=== PATIENT | male | born 1965 | race Caucasian/White ===

== ENCOUNTER → 2023-10-04 08:07 | Outpatient (REF) | payer OTHER, SELFPAY | LOC: PET 08:07 | DX: C82.50 Diffuse follicle center lymphoma, unspecified site (principal) | CPT/HCPCS: 78815; A9552 ==

== ENCOUNTER 2024-01-18 10:19 | Emergency (ER) | payer OTHER, SELFPAY ==
[2024-01-18 11:01] VITALS: BP 137/84
[2024-01-18 11:10] LABS: Glucose - Point of Care 92 mg/dl (70-99)
[2024-01-18 11:27] LABS: % Basophils 0.6 % (0-2); % Eosinophils 0.7 % (0-6); % Immature Granulocytes 0.3 % (0-0.5); % Lymphocytes 24.3 % (20.5-51.1); % Neutrophils 65.1 % (42.2-75.2); Absolute Basophils 0.1 10^3/uL (0-0.2); Absolute Eosinophils 0.1 10^3/uL (0-0.7); Absolute Lymphocytes 2.4 10^3/uL (1.2-3.4); Absolute Monocytes 0.9 10^3/uL (0.1-0.6); Absolute Neutrophils 6.4 10^3/uL (1.4-6.5); Hematocrit 48.4 % (39.0-52.0); Hemoglobin 16.4 g/dL (13.0-18.0); Mean Corp Hgb Conc. 33.9 g/dL (33.0-37.0); Mean Corpuscular Hgb 28.9 pg (27.0-31.0); Mean Corpuscular Volume 85.2 fL (80.0-94.0); Mean Platelet Volume 9.9 fL (7.4-10.4); Nucleated Red Blood Cells % 0 % (-); Platelet Count 251 10^3/uL (130-400); Red Blood Cell Count 5.68 10^6/uL (4.70-6.10); Red Cell Dist. Width 13.1 % (11.5-14.5); White Blood Cell Count 9.8 10^3/uL (4.8-10.8)
[2024-01-18 11:36] LABS: ALT (SGPT) 18 U/L (0-50); AST (SGOT) 25 U/L (17-59); Albumin 5.1 g/dl (3.5-5.0); Alkaline Phosphatase 47 U/L (38-126); Blood Urea Nitrogen 23 mg/dl (9-20); Calcium 9.8 mg/dl (8.4-10.2); Carbon Dioxide 29 mmol/L (22-30); Chloride 103 mmol/L (98-107); Glucose 96 mg/dl (70-99); Potassium 5.4 mmol/L (3.5-5.1); Sodium 143 mmol/L (135-145); Total Bilirubin 0.7 mg/dl (0.2-1.3); Total Protein 7.7 g/dl (6.3-8.2); eGFR > 60.00
--- NOTE | 2024-01-18 12:00 | ED.GENMED ---
ED Provider Triage
-
Patient seen by provider in Triage?: Seen in Triage
Attestation: A medical screening examination has been initiated by a qualified medical provider. Based on the assessment performed at this time, it has been determined that an emergent medical condition may exist and the patient has been informed
that further medical evaluation and possible additional diagnostic testing may be needed.
HPI: 59 yr old male hx of b cell lymphoma ( in remission ) sent from [facility] for seizure. Pt was having a laser procedure done and had a witnessed seizure by DR Cano lasting 3 minutes. pt reports he remembers feeling a 'weird
sensation ' starting in his legs that 'was moving up my body and then ' I fell asleep.' pt has had these episodes in the past however not ever seen by neuro. no dx of seizues. no recent trauma/fevers, no headache and no blood thinners.
GENERAL: Alert , in no apparent distress
EYE: No visual abnormalities.
NECK: Trachea midline
ENT: No visible abnormalities.
LUNGS: No acute respiratory distress
NEUROLOGICAL: Alert and oriented
SKIN: Skin intact. No visible changes.
MUSCULOSKELETAL: Moving extremities normally
PSYCH: Normal and appropriate interaction.
This is a medical evaluation conducted in person to initiate diagnostic evaluation and provide initial therapeutics. Please see further documentation by the treating clinician.
History of Present Illness
General
Chief Complaint: Seizure
Past History
Past History
ED Past Medical History: Cancer (Lymphoma)
ED Past Surgical History: Orthopedic
Social History
Tobacco: Non-smoker
Alcohol: None
Drug: None
Living: with family
Course
Orders/Labs/Results
Orders:
Orders
01/18/24 11:09
Complete Blood Count/With Diff Urgent
Comprehensive Metabolic Panel Urgent
Abnormal Lab Results
01/18/24
11:09
Absolute Monos (auto) 0.9 H 10^3/uL
(0.1-0.6)
Potassium 5.4 H mmol/L
(3.5-5.1)
BUN 23 H mg/dl
(9-20)
Albumin 5.1 H g/dl
(3.5-5.0)
01/18/24 11:09
01/18/24 11:09
Vital Signs
Initial and Last Documented VS:
Initial Vital Signs
Temp Pulse Resp BP Pulse Ox
98.7 F 57 16 137/84 98
01/18/24 11:01 01/18/24 11:01 01/18/24 11:01 01/18/24 11:01 01/18/24 11:01
Last Documented Vital Signs
Temp Pulse Resp BP Pulse Ox
98.7 F 57 18 137/84 98
01/18/24 11:01 01/18/24 11:01 01/18/24 12:07 01/18/24 11:01 01/18/24 11:01
ED Attending Note
-
Portions of this chart may have been created with voice recognition software.� Occasional wrong word or��sound alike� substitutions may have occurred due to the inherent limitations of voice recognition software.
Discharge Plan
Departure
Prescriptions:
No Action
pantoprazole 40 MG tablet,delayed release (DR/EC)
40 mg PO DAILY
calcium citrate-vitamin D3 1 EACH tablet
2 ea PO BID
apixaban [Eliquis] 5 MG tablet
5 mg PO BID
Vitamin D2
50,000 units PO WEEKLY
R Chop
1 dose IV Q3W
Interventions
Interventions:
*Risk Screen - Suicide Last Done: 01/18/24 11:01
*General Assessment Last Done: 01/18/24 12:15
*Neglect/Abuse Screening Last Done: 01/18/24 11:01
*ED COVID-19 Vaccine History Last Done: 01/18/24 12:15
ED- Cardiac Assessment Last Done: 01/18/24 12:15
ED- Neurological Assessment Last Done: 01/18/24 12:15
ED- Pulmonary Assessment Last Done: 01/18/24 12:15
Discharge Date and Time
Print Language: [place]
--- NOTE | 2024-01-18 13:02 | ED.GENMED ---
History of Present Illness
General
Chief Complaint: Seizure
Source: patient and spouse
Exam Limitations: none
Time Seen by Provider: 01/18/24 12:37
Nursing documentation reviewed up to this point in time: agreed with
History of Present Illness
History of Present Illness:
The patient is a pleasant 59-year-old man with a past medical history of 'one seizure 20 years ago' and spinal cancer which is in remission, who was sent from ophthalmology after having a seizure shortly after undergoing glaucoma surgery today at
[facility]. Patient reports that he had just finished the surgery and was in recovery. He reports the anesthesia just involved eyedrops. He reports that he felt a sense of lightheadedness in both of his legs going up towards his waist
and then has no memory after that. Reportedly, he had a witnessed seizure. It was described as tonic-clonic lasting 3 minutes and he was sleepy after. Patient reports that occasionally, about once a year, he gets lightheadedness in both legs
going up towards his waist like he did today, however, he reports that ' he is able to stop what he is doing and control symptoms so that he does not get a seizure'. Patient reports that he is not on any seizure meds nor has he started seizure meds
in the past. Patient states he feels great now. He denies a headache, vision changes, fever and just complains of feeling hungry.
Past History
Past History
ED Past Medical History: Cancer (Lymphoma) and Seizures (1 seizure 20 years ago)
ED Past Surgical History: Orthopedic
Social History
Tobacco: Non-smoker
Alcohol: None
Drug: None
Personal:
Living: with family
Employment: Other
Family History
Family History: Other
Review of Systems
Review of Systems
Allergies reviewed?: Yes
All Other Systems: ROS reviewed and negative except as documented in HPI and ROS
Constitutional: Reports no symptoms
EENT: Reports no symptoms
Respiratory: Reports no symptoms
Cardiac: Reports no symptoms
ABD/GI: Reports no symptoms
: Reports no symptoms
Musculoskeletal: Reports no symptoms
Skin: Reports no symptoms
Endocrine: Reports other
Hematologic/Lymphatic: Reports no symptoms
Psychiatric: Reports no symptoms
Phy Exam
Physical Exam
Physical Exam:
Physical Exam
General: no apparent distress, not acutely ill. Patient is smiling, conversational
Neck: supple. no meningeal signs. normal psoterior pharynx
Heart: s1/s2 regular rate and rhythm, no murmur. equal radial pulses.
Lungs: no acute respiratory distress. clear bilaterally
Abdomen: normal bowel sounds. not tender. no CVAT
Neuro: alert and orientedx3. no focal neurological deficits. Fully awake, alert, smiling and conversational. Extraocular muscles intact. Cranial nerves equal and symmetric bilaterally. 5 out of 5 strength in all
extremities without drift. No saddle anesthesia
Skin: no rash
Psychiatric: well kept. interactive and cooperative
Extremities: no edema. no calf tenderness. negative homans. good distal pulses
Course
Orders/Labs/Results
Orders:
Orders
01/18/24 11:09
Complete Blood Count/With Diff Urgent
Comprehensive Metabolic Panel Urgent
01/18/24 12:18
CT Head W/o Iv Contrast Urgent
Comment:
Reason For Exam: seizure
01/18/24 13:08
Electrocardiogram (*1) Urgent
Reason for Study: Fatigue / Weakness
EKG- Treatment ONCE
01/18/24 13:51
EEG Routine Urgent
Reason for Exam: seizure
Neurology Consult: OTHER
Comment: Sergei Toscano
01/18/24 14:05
Urine Drug Abuse Screen Urgent
Date Specimen was Collected: 01/18/24
Time Specimen was Collected: 14:03
01/18/24 15:48
Consult Neurology [NEUROLOGY CONSULT] Urgent
Consulting Provider: Sergei Toscano
Was physician already notified: Yes
Reason for consult: seizure
Abnormal Lab Results
01/18/24
11:09
Absolute Monos (auto) 0.9 H 10^3/uL
(0.1-0.6)
Potassium 5.4 H mmol/L
(3.5-5.1)
BUN 23 H mg/dl
(9-20)
Albumin 5.1 H g/dl
(3.5-5.0)
01/18/24 11:09
01/18/24 11:09
Vital Signs
Initial and Last Documented VS:
Initial Vital Signs
Temp Pulse Resp BP Pulse Ox
98.7 F 57 16 137/84 98
01/18/24 11:01 01/18/24 11:01 01/18/24 11:01 01/18/24 11:01 01/18/24 11:01
Last Documented Vital Signs
Temp Pulse Resp BP Pulse Ox
98.7 F 57 18 137/84 98
01/18/24 11:01 01/18/24 11:01 01/18/24 12:07 01/18/24 11:01 01/18/24 11:01
MDM/Problems Addressed
Differential Diagnosis Includes:
Epilepsy, intracranial mass, intracranial hemorrhage
MDM/Problems Addressed:
Patient presents after having an acute seizure
Chronic conditions affecting care:
Epilepsy
Acute Exacerbation and/or Progression of Chronic Illness:
Patient likely had an acute seizure due to chronic epilepsy that is uncontrolled.
*Pulse Oximetry
Patient hypoxic: no
*EKG
Interpreted by ED Provider?: Yes
Interpretation: abnormal
Comparison EKG: changes noted
Rate: normal
Rhythm: sinus
Jackson: left axis deviation
Interval: normal interval
QRS Pattern: normal QRS
Ischemia: no ischemia
*Critical Care Note
Total Time (30-74mins, 75-104mins- exclusive of procedures): Not Applicable
Patient Management
Social determinants of health affecting care: Living situation and Strong social support
Discussion with other providers: Other (Case discussed with neurologist, on-call, Sergei Toscano, who does not recommend I start patient on seizure meds.)
Update Note
Update Note:
Patient has been resting comfortably for hours. Formal consult done by neurology. Neurology feels patient does not need to be discharged home on any medications. He is allowed to drive and carry on his normal activity according to neurology
ED Attending Note
-
Portions of this chart may have been created with voice recognition software.� Occasional wrong word or��sound alike� substitutions may have occurred due to the inherent limitations of voice recognition software.
Discharge Plan
Departure
Patient Disposition: Home (Routine Discharge)
Date of Disposition: 01/18/24
Time of Disposition: 16:02
Patient with high blood pressure during this ER visit?: Yes
Condition: Good
Covid-19: Not Applicable
Discharge Problem:
Seizure, Acute hyperkalemia
Instructions: Seizures, Adult (DC), Hyperkalemia, BLOOD PRESSURE
Prescriptions:
No Action
pantoprazole 40 MG tablet,delayed release (DR/EC)
40 mg PO DAILY
calcium citrate-vitamin D3 1 EACH tablet
2 ea PO BID
apixaban [Eliquis] 5 MG tablet
5 mg PO BID
Vitamin D2
50,000 units PO WEEKLY
R Chop
1 dose IV Q3W
Referrals:
Everton Hinton DO [Family Provider] -
Activity Restrictions/Additional Instructions:
Your potassium level was slightly elevated. Please follow-up with your doctor in about 3 to 4 days to have your potassium rechecked to make sure it normalizes. It may be elevated due to the seizure.
Interventions
Interventions:
*Risk Screen - Suicide Last Done: 01/18/24 11:01
*General Assessment Last Done: 01/18/24 12:15
*Neglect/Abuse Screening Last Done: 01/18/24 11:01
*ED COVID-19 Vaccine History Last Done: 01/18/24 12:15
ED- Cardiac Assessment Last Done: 01/18/24 12:15
ED- Neurological Assessment Last Done: 01/18/24 12:15
ED- Pulmonary Assessment Last Done: 01/18/24 12:15
Discharge Date and Time
Print Language: CITIZEN OF [place]
[2024-01-18 14:40] LABS: Amphetamines Negative (Negative); Barbiturates Negative (Negative); Benzodiazepines Negative (Negative); Buprenorphine Negative (Negative); Cocaine Negative (Negative); Marijuana Negative (Negative); Methadone Negative (Negative); Methamphetamines Negative (Negative); Opiates Negative (Negative); Phencyclidine Negative (Negative); Tricyclic Antidepressants Negative (Negative)
[2024-01-18 16:07] VITALS: BP 113/91
--- NOTE | 2024-01-19 13:23 | EEG.RPT ---
Electroencephalogram Report
Recording
Date of EE01/19/24
Type of EEG: Routine
Length of EEG recordin minutes
Done with Video Recording: Yes
Patient Status: Emergency Room
Recording Conditions: Awake, Drowsy and Asleep
Hyperventilation Performed: No
Photic Stimulation Performed: Yes
Report
GREATER THAN 1 HOUR EEG REPORT
EEG INTERPRETATION:
Unremarkable EEG for age
CLINICAL CORRELATION:
A normal EEG does not rule out a diagnosis of epilepsy. If clinical suspicion for seizure persists, a prolonged recording may be warranted.
Clinical correlation is advised.
METHODS:
A 21 channel digitized electroencephalogram (EEG) was performed in the Emergency Department. The 10/20 international system of electrode placement was used with ECG and lateral/vertical eye movements recorded. Persyst quantitative EEG analysis was
performed.
ELECTROENCEPHALOGRAPHER IMPRESSION(S):
Quality of study
Good
Background
Unremarkable, well maintained, medium amplitude alpha-frequency and unremarkable anterior-posterior voltage gradient
With eye opening the background activity changed to a low voltage mixture of frequencies.
Sleep
Drowsiness present
Stage 1 sleep
Stage 2 sleep
Photic Stimulation
Did not activate the record
ECG
Normal sinus rhythm
== END 2024-01-18 16:10 | disposition home or self-care (01) ==
LOC: EMR 10:19
PROVIDERS: Emergency Medicine; CONSULT PHYSICIAN Psychiatry & Neurology Neurology; EMERGENCY PHYSICIAN Emergency Medicine; FAMILY PHYSICIAN Family Medicine
DX: E87.5 Hyperkalemia (principal); G40.909 Epilepsy, unspecified, not intractable, without status epilepticus
CPT/HCPCS: 99285; 70450; 80053; 80306; 82962; 85025; 93005; 95816

== ENCOUNTER → 2025-03-18 08:43 | Outpatient (REF) | payer OTHER, SELFPAY | LOC: MRI 3T 08:43 | PROVIDERS: ATTENDING PHYSICIAN Internal Medicine Hematology & Oncology; FAMILY PHYSICIAN Family Medicine | DX: C82.98 Follicular lymphoma, unspecified, lymph nodes of multiple sites (principal); M54.50 Low back pain, unspecified | CPT/HCPCS: 72158; A9575 ==